=== PATIENT | female | born 1950 | race Caucasian/White ===

== ENCOUNTER 2017-03-09 13:08 | Emergency (ER) | payer BC, OTHER ==
--- NOTE | ~2017-03-09 | ER ---
PATIENT'S NAME: [facility] AGE: 66 Y [address] ROOM: [place] [address] LOCATION: [facility] ADMIT DATE: 03/09/2017 ER/Outpatient Report DISCHARGE DATE: 03/09/2017 FAMILY PHYSICIAN: Judy Martin MD ATTENDING PHYSICIAN: Vita Pennington TIME SEEN: 1320 hours. HISTORY OF PRESENT ILLNESS: The patient is a 66-year-old female, who presents with a spontaneous superficial varicosity bleed. The patient tried direct pressure at home without any relief. She said that she has had it happen one other time before. She is on Xarelto. ALLERGIES: PENICILLIN. CURRENT MEDICATIONS: Include, 1. Metoprolol. 2. Wellbutrin. 3. Xarelto. 4. Thyroid replacement. 5. Metformin. 6. Singulair. PAST MEDICAL HISTORY: Includes [id number]-otzorkxha diabetes, history of atrial fib, hypertension. PAST SURGICAL HISTORY: Include appendectomy and . SOCIAL HISTORY: Previous smoker. Good family support. Two sons were present. REVIEW OF SYSTEMS: GENERAL: No recent change in her health status. HEAD AND EENT: She has had no bleeding from her gums. RESPIRATORY: No shortness of breath. CARDIOVASCULAR: Denies any chest pain, as in the history of present illness. EXTREMITIES: There is bleeding from a varicosity, right lower leg. PHYSICAL EXAMINATION: VITAL SIGNS: Blood pressure 118/79, temperature is 97, her respiratory rate PATIENT'S NAME: [facility] AGE: 66 Y [address] ROOM: [place] [address] LOCATION: [facility] ADMIT DATE: 03/09/2017 ER/Outpatient Report DISCHARGE DATE: 03/09/2017 FAMILY PHYSICIAN: Judy Martin MD ATTENDING PHYSICIAN: Vita Pennington 20, pulse 85, O2 saturations 94%. GENERAL APPEARANCE: Somewhat obese white female, alert, oriented. EXTREMITIES: Exam of the right lower leg after the dressing was removed, there was a bleeding varicosity. The bleeding was stopped with silver nitrate cauterization. ASSESSMENT: Bleeding superficial varicosity, right lower leg. PLAN: Treatment. Silver nitrate was used to cauterize varicosity. Topical Dermabond applied, pressure dressing also reapplied. The patient advised to remove the dressing tomorrow. Follow up if any concerns or further bleeding. KAILEE GARCIA FOR MD JOSHUA ZELAYA/radha /[id number] d: 03/09/[id number] t: 03/15/17711, OUTPATIENT REPORT
== END 2017-03-09 14:00 | disposition disaster alternative care site (69) ==
LOC: GACC 13:08
PROC: 0HQKXZZ Repair Right Lower Leg Skin, External Approach (ICD-10-PCS; principal; 2017-03-09)
DX: I83.91 Asymptomatic varicose veins of right lower extremity (principal); I10 Essential (primary) hypertension; E11.9 Type 2 diabetes mellitus without complications; I48.91 Unspecified atrial fibrillation; Z79.01 Long term (current) use of anticoagulants; Z79.84 Long term (current) use of oral hypoglycemic drugs; Z79.899 Other long term (current) drug therapy; Z87.891 Personal history of nicotine dependence; Z88.0 Allergy status to penicillin; Z98.890 Other specified postprocedural states